=== PATIENT | female | born 1950 | race Hispanic/Latino ===

== ENCOUNTER → 2018-03-09 | Day surgery (SDC) | payer MEDICARE, BC ==
[~2018-03-09] MED LIST: Iodixanol 320 MG/ML 100 ML BOTTLE IV ONE; Iodixanol 320 MG/ML 200 ML BOTTLE IV ONE; Iohexol 350mgl/ml 50 ML ONE; Lidocaine 2% Inj (20ml) ONE; Midazolam 2 MG/2 ML VIAL ONE; Nitroglycerin 50mg in D5W 0 MG/0 ML BOTTLE IV ONE; Phenylephrine 10 mg/ml Inj ONE; Sodium Chloride 0.9% 1,000 ML IV SCH
[2018-03-09 07:11] LABS: BASO # 0.04 K/mm3 (0.0-2.0); BASO % 0.9 % (0.0-3.0); EOS # 0.3 (0.0-0.7); EOS % 5.9 % (1.5-5.0); GRAN # 1.98 (1.4-6.5); GRAN % 46.3 % (50.0-68.0); HEMOGLOBIN 14.1 g/dL (12.0-16.0); LYMPH # 1.5 (1.2-3.4); LYMPH % 34.7 % (22.0-35.0); MEAN CELL VOLUME 98.1 fl (80.0-105.0); MEAN CORPUSCULAR HGB CONC 33.7 g/dl (31.0-37.0); MEAN PLATELET VOLUME 9.2 fl (7.0-11.0); MONO # 0.5 (0.1-0.6); MONO % 12.2 % (1.0-6.0); RBC 4.27 10^6/uL (3.5-6.1); RED CELL DISTRIBUTION WIDTH 13.2 % (11.5-14.5); WHITE BLOOD COUNT 4.3 10^3/uL (4.5-11.0)
[2018-03-09 07:14] LABS: INR 0.97; PARTIAL THROMBOPLASTIN TIME 29.2 Seconds (25.1-36.5); PROTHROMBIN TIME 11.2 SECONDS (9.4-12.5)
[2018-03-09 07:15] LABS: BLOOD UREA NITROGEN 17 mg/dL (7-21); CALCIUM 9.4 mg/dL (8.4-10.5); GFR NON-AFRICAN AMERICAN > 60
[2018-03-09 09:31] VITALS: TEMP 97.8
--- NOTE | 2018-03-09 10:33 | CARDCATH ---
PROCEDURE DATE: 03/09/2018 HISTORY The patient is a 68-year-old woman who presents with an abnormal stress test. The patient suffers from a family history for CAD. A stress test was abnormal. Because of this, cardiac catheterization was recommended. PROCEDURE: Left heart catheterization with coronary aortography and left ventriculogram. The right femoral artery was cannulated with a 6-Sy[place] sheath. There were no complications. I performed moderate sedation which included the presence of an independent trained observer that assisted in monitoring the patient's level of consciousness and physiologic status. After administration of Versed and fentanyl, my intra service time was 15 minutes. Findings on catheterization revealed a left ventricle that contracted normally. Estimated ejection fraction 60%. Her coronary anatomy revealed a right dominant circulation of the RCA was within normal limits. The left main artery was unremarkable. The LAD and diagonal vessels were free of significant disease. There is tapering of the distal apical segment of the LAD. The circumflex artery and obtuse marginal branches were within normal limits. Manual compression was used to close the femoral artery site. The patient tolerated the procedure well. In summary, the procedure revealed normal coronary arteries with tapering of the distal apical segment of the LAD. LV function is normal. Given these findings, the patient's cardiac status is stable. We will DC her aspirin, DC her Plavix. We will continue a cardiac risk reduction program. Arvind Walsh MD
[2018-03-09 14:08] VITALS: O2SAT 98
[2018-03-09 15:01] VITALS: BP 118/56; PULSE 62; RESP 20
== END | disposition home or self-care (01) ==
LOC: CATH 06:04
PROVIDERS: ATTEND Internal Medicine Cardiovascular Disease
DX: R94.39 Abnormal result of other cardiovascular function study (principal); Z82.49 Family history of ischemic heart disease and other diseases of the circulatory system
CPT/HCPCS: 36415; 80048; 85025; 85610; 85730; 86850; 86900; 93458; 99152; C1769; C2629; J1644; J2250; J3010; J7030; J7040; Q9966